=== PATIENT | female | born 1955 | race Hispanic/Latino ===

== ENCOUNTER 2021-05-06 14:01 | Emergency (ER) | payer BC ==
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
[2021-05-06 16:37] VITALS: BP 115/66; TEMP 98.3; O2SAT 99
== END 2021-05-06 15:44 | disposition home or self-care (01) ==
LOC: ER 14:01
DX: S16.1XXA Strain of muscle, fascia and tendon at neck level, initial encounter (principal); S20.219A Contusion of unspecified front wall of thorax, initial encounter; V49.40XA Driver injured in collision with unspecified motor vehicles in traffic accident, initial encounter
CPT/HCPCS: 70450; 71045; 72125; 93005; 99283

== ENCOUNTER 2021-10-05 17:25 | Emergency (ER) | payer BC, SELFPAY ==
[2021-10-05] MEDS ORDERED: ONDANSETRON 4 MG (ODT) TAB ONE (18:28)
[2021-10-05] MEDS ORDERED: IBUPROFEN 200 MG TAB PO ONE (18:28)
[2021-10-05] MEDS ORDERED: IBUPROFEN 400 MG TAB ONE (18:28)
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
--- NOTE | 2021-10-05 19:03 | ER ---
Nurse's Notes [facility] Name: Brandie Miranda Age: 66 yrs Sex: Female : 1955 Arrival Date: 10/05/2021 Time: 17:26 Bed 12 Private MD: Aram Pena V Diagnosis: Acute pain due to trauma;Contusion of left hand;Sprain of joints and ligaments of other parts of neck, initial encounter Presentation: 10/05 17:49 Chief complaint: Patient states: Tripped at 1635. Hit glass door very hard. No LOC, no ll1 N/V since. Gait steady. Hit head, L hand, and L knee. Coronavirus screen: Vaccine status: Patient reports being unvaccinated. Client denies travel out of the [place] in the last 14 days. At this time, the client does not indicate any symptoms associated with coronavirus-19. Ebola Screen: Patient denies travel to an Ebola-affected area in the 21 days before illness onset. Initial Sepsis Screen: Does the patient meet any 2 criteria? No. Patient's initial sepsis screen is negative. Does the patient have a suspected source of infection? No. Patient's initial sepsis screen is negative. Risk Assessment: Do you want to hurt yourself or someone else? Patient reports no desire to harm self or others. Onset of symptoms was October 05, 2021. 17:49 Method Of Arrival: Ambulatory ll1 17:49 Acuity: NEREYDA 4 ll1 Historical: - Allergies: 17:49 No Known Allergies; ll1 - PMHx: 17:49 None; ll1 - PSHx: 17:49 Cholecystectomy; ll1 - Immunization history:: Client reports receiving the 2nd dose of the Covid vaccine. - Social history:: Smoking status: Patient denies any tobacco usage or history of. Vital Signs: 17:49 BP 144 / 100; Pulse 74; Resp 16; Temp 98.0; Pulse Ox 99% ; Weight 74.84 kg; Height 5 ll1 ft. 3 in. (160.02 cm); Pain 4/10; 17:49 Body Mass Index 29.23 (74.84 kg, 160.02 cm) ll1 ED Course: 17:26 Patient arrived in ED. am2 17:26 Aram Pena MD is Private Physician. am2 17:51 Triage completed. ll1 17:51 Arm band placed on Patient placed in an exam room, on a stretcher. ll1 17:55 Guzman Orozco PA is PHCP. jr8 17:55 Dylan Chen MD is Attending Physician. jr8 18:51 Head C Spine Mpr Wo Con In Process Unspecified. EDMS 19:01 Aram Pena MD is Referral Physician. jr8 Administered Medications: No medications were administered Outcome: 19:03 Discharge ordered by . jr8 19:08 Patient left the ED. mb7 Signatures: Dispatcher [employer] EDME Guzman Orozco PA PA jr8 Chelsea Raines am2 Markus Elizabeth RN RN ll1 Virgie Forrest mb7 Corrections: (The following items were deleted from the chart) 17:49 17:49 PSHx: None; ll1 ll1
--- NOTE | 2021-10-05 19:04 | EDPHYS ---
Physician Documentation [facility] Name: Brandie Miranda Age: 66 yrs Sex: Female : 1955 Arrival Date: 10/05/2021 Time: 17:26 Bed 12 Private MD: Aram Pena V ED Physician Dylan Chen HPI: 10/05 18:14 This 66 yrs old Female presents to ER via Ambulatory with complaints of Fall jr8 Injury, Head Injury-Adult, Hand Pain, Knee Pain. 18:14 Details of fall: The patient fell from an upright position, while standing. Onset: The jr8 symptoms/episode began/occurred acutely, today. Associated injuries: The patient sustained injury to the head, left hand, left leg. Severity of symptoms: At their worst the symptoms were mild, in the emergency department the symptoms have improved. The patient has not experienced similar symptoms in the past. The patient has not recently seen a physician. Patient stated that she tripped while at work falling into glass door. Hit head but denies LOC. Mild headache currently. Not on antiplatelet or anticoagulant therapy. Mild pain to left hand and knee as well . Historical: - Allergies: 17:49 No Known Allergies; ll1 - PMHx: 17:49 None; ll1 - PSHx: 17:49 Cholecystectomy; ll1 - Immunization history:: Client reports receiving the 2nd dose of the Covid vaccine. - Social history:: Smoking status: Patient denies any tobacco usage or history of. ROS: 18:14 Eyes: Negative for injury, pain, redness, and discharge, ENT: Negative for injury, jr8 pain, and discharge, Neck: Negative for injury, pain, and swelling, Cardiovascular: Negative for chest pain, palpitations, and edema, Respiratory: Negative for shortness of breath, cough, wheezing, and pleuritic chest pain, Abdomen/GI: Negative for abdominal pain, nausea, vomiting, diarrhea, and constipation, Back: Negative for injury and pain, Skin: Negative for injury, rash, and discoloration. 18:14 MS/extremity: Positive for pain, tenderness, of the left hand and left leg. 18:14 Neuro: Positive for headache, Negative for altered mental status, dizziness, loss of consciousness, seizure activity. Exam: 18:14 Constitutional: This is a well developed, well nourished patient who is awake, alert, jr8 and in no acute distress. Head/Face: Normocephalic, atraumatic. Eyes: Pupils equal round and reactive to light, extra-ocular motions intact. Lids and lashes normal. Conjunctiva and sclera are non-icteric and not injected. Cornea within normal limits. Periorbital areas with no swelling, redness, or edema. ENT: Nares patent. No nasal discharge, no septal abnormalities noted. Tympanic membranes are normal and external auditory canals are clear. Oropharynx with no redness, swelling, or masses, exudates, or evidence of obstruction, uvula midline. Mucous membranes moist. Neck: Trachea midline, no thyromegaly or masses palpated, and no cervical lymphadenopathy. Supple, full range of motion without nuchal rigidity, or vertebral point tenderness. No Meningismus. Chest/axilla: Normal chest wall appearance and motion. Nontender with no deformity. No lesions are appreciated. Cardiovascular: Regular rate and rhythm with a normal S1 and S2. No gallops, murmurs, or rubs. Normal PMI, no JVD. No pulse deficits. Respiratory: Lungs have equal breath sounds bilaterally, clear to auscultation and percussion. No rales, rhonchi or wheezes noted. No increased work of breathing, no retractions or nasal flaring. Abdomen/GI: Soft, non-tender, with normal bowel sounds. No distension or tympany. No guarding or rebound. No evidence of tenderness throughout. Back: No spinal tenderness. No costovertebral tenderness. Full range of motion. Skin: Warm, dry with normal turgor. Normal color with no rashes, no lesions, and no evidence of cellulitis. Neuro: Awake and alert, GCS 15, oriented to person, place, time, and situation. Cranial nerves II-XII grossly intact. Motor strength 5/5 in all extremities. Sensory grossly intact. Cerebellar exam normal. Normal gait. 18:14 Musculoskeletal/extremity: Extremities: grossly normal except: noted in the left hand: Patient has small bruise to the thenar eminence of the left hand and to the metacarpophalangeal region of the fifth digit. No tenderness to palpation or with range of motion., ROM: intact in all extremities, Circulation is intact in all extremities. Sensation intact. Vital Signs: 17:49 BP 144 / 100; Pulse 74; Resp 16; Temp 98.0; Pulse Ox 99% ; Weight 74.84 kg; Height 5 ll1 ft. 3 in. (160.02 cm); Pain 4/10; 17:49 Body Mass Index 29.23 (74.84 kg, 160.02 cm) ll1 MDM: 17:55 Patient medically screened. jr8 18:14 Data reviewed: vital signs, nurses notes, radiologic studies, CT scan. Data jr8 interpreted: Pulse oximetry: on room air is 99 %. Interpretation: normal. Counseling: I had a detailed discussion with the patient and/or guardian regarding: the historical points, exam findings, and any diagnostic results supporting the discharge/admit diagnosis, radiology results, the need for outpatient follow up, a family practitioner, to return to the emergency department if symptoms worsen or persist or if there are any questions or concerns that arise at home. 10/05 18:48 Order name: Head C Spine Mpr Wo Con; Complete Time: 19:01 EDMS Administered Medications: No medications were administered Disposition: 10/06 07:27 Co-signature as Attending Physician, Dylan Chen MD I agree with the assessment and rn plan of care. Attestation: The patient's history, exam findings, diagnostics, and a summary of any interventions or procedures was reviewed in detail with Guzman AUGUSTIN. Disposition Summary: 10/05/21 19:03 Discharge Ordered Location: Home jr8 Problem: new jr8 Symptoms: have improved jr8 Condition: Stable jr8 Diagnosis - Acute pain due to trauma jr8 - Contusion of left hand jr8 - Sprain of joints and ligaments of other parts of neck, initial encounter jr8 Followup: jr8 - With: Aram Pena MD - When: 1 week - Reason: Recheck today's complaints, Continuance of care, Re-evaluation by your physician Discharge Instructions: - Discharge Summary Sheet jr8 - Head Injury, Adult jr8 - Muscle Pain, Adult jr8 - Cervical Sprain jr8 Forms: - Medication Reconciliation Form jr8 - Thank You Letter jr8 - Antibiotic Education jr8 - Prescription Opioid Use jr8 Signatures: Dispatcher [employer] EDMS Dylan Chen MD MD rn Roszak, Josh, PA PA jr8 Markus Elizabeth RN RN ll1 Corrections: (The following items were deleted from the chart) 10/05 17:49 17:49 PSHx: None; ll1 ll1 18:48 18:05 Head Brain Wo Cont+CT.RAD.BRZ ordered. EDMS EDMS 18:49 18:39 C Spine Wo Con+CT.RAD.BRZ ordered. EDMS EDMS
[2021-10-05 20:13] VITALS: BP 144/100; TEMP 98; O2SAT 99
== END 2021-10-05 19:08 | disposition home or self-care (01) ==
LOC: ER 17:25
DX: S13.8XXA Sprain of joints and ligaments of other parts of neck, initial encounter (principal); S60.222A Contusion of left hand, initial encounter; G89.11 Acute pain due to trauma; W01.198A Fall on same level from slipping, tripping and stumbling with subsequent striking against other object, initial encounter; Y92.89 Other specified places as the place of occurrence of the external cause; Y99.8 Other external cause status
CPT/HCPCS: 70450; 72125; 99282

== ENCOUNTER 2021-11-06 17:07 | Emergency (ER) | payer BC ==
[2021-11-06] MEDS ORDERED: TRAMADOL HCL 50 MG TAB ONE (20:59)
--- NOTE | 2021-11-06 22:10 | RAD REPORT ---
EXAM DESCRIPTION: RAD - Pelvis - 11/06/2021 9:44 pm CLINICAL HISTORY: PAIN COMPARISON: No comparisons FINDINGS: [id number] osteoarthritis is present involving both hips. No acute fracture or dislo cation seen.
--- NOTE | 2021-11-06 22:11 | RAD REPORT ---
EXAM DESCRIPTION: RAD - Hip Right 2 View - 11/06/2021 9:44 pm CLINICAL HISTORY: PAIN COMPARISON: No comparisons FINDINGS: Moderate osteoarthritis of the right hip is present. No acute fracture or dislocation seen .
--- NOTE | 2021-11-06 22:11 | RAD REPORT ---
EXAM DESCRIPTION: RAD - Knee Left 3 View - 11/06/2021 9:44 pm CLINICAL HISTORY: PAIN COMPARISON: No comparisons FINDINGS: Moderate osteoarthritis of the medial joint compartment is seen with joint space narrowing , osteophytosis and eburnation. No acute fracture or dislocation. No joint effusion.
--- NOTE | 2021-11-06 22:12 | RAD REPORT ---
EXAM DESCRIPTION: RAD - Knee Right 3 View - 11/06/2021 9:44 pm CLINICAL HISTORY: PAIN COMPARISON: No comparisons FINDINGS: Moderate to severe osteoarthritis of the medial joint compartment is seen. No fracture, di slocation or joint effusion.
--- NOTE | 2021-11-06 22:20 | ER ---
Nurse's Notes [facility] Name: Brandie Miranda Age: 66 yrs Sex: Female : 1955 Arrival Date: 11/06/2021 Time: 17:10 Bed 9 Private MD: Diagnosis: Fall (on) (from) other stairs and steps, initial encounter;Pain in right hip;Pain in left knee;Pain in right knee Presentation: 11/06 17:24 Chief complaint: Patient states: Tripped herself going down her stairs Tuesday. Missed ll1 the last 3 steps. R hip pain since. Coronavirus screen: Vaccine status: Patient reports receiving the 2nd dose of the covid vaccine. Client denies travel out of the [place] in the last 14 days. At this time, the client does not indicate any symptoms associated with coronavirus-19. Ebola Screen: Patient denies travel to an Ebola-affected area in the 21 days before illness onset. Initial Sepsis Screen: Does the patient meet any 2 criteria? No. Patient's initial sepsis screen is negative. Does the patient have a suspected source of infection? No. Patient's initial sepsis screen is negative. Risk Assessment: Do you want to hurt yourself or someone else? Patient reports no desire to harm self or others. Onset of symptoms was October 2021. 17:24 Method Of Arrival: Wheelchair ll1 17:24 Acuity: NEREYDA 4 ll1 Triage Assessment: 17:27 General: Appears in no apparent distress. Behavior is calm, cooperative, appropriate ll1 for age. Pain: Complains of pain in R hip. Musculoskeletal: Reports pain in R hip. Injury Description: Bruise. Historical: - Allergies: 17:25 No Known Allergies; ll1 - PMHx: 17:25 Diabetes mellitus; Hypercholesterolemia; Hypertensive disorder; ll1 - PSHx: 17:25 Cholecystectomy; knee SX; ll1 - Immunization history:: Client reports receiving the 2nd dose of the Covid vaccine. - Social history:: Smoking status: Patient denies any tobacco usage or history of. Screenin:15 Abuse screen: Denies threats or abuse. Nutritional screening: No deficits noted. bb Tuberculosis screening: No symptoms or risk factors identified. Fall Risk None identified. Assessment: 20:15 General: Appears in no apparent distress. uncomfortable, Behavior is calm, cooperative. bb Pain: Complains of pain in back. Neuro: Level of Consciousness is awake, alert, obeys commands, Oriented to person, place, time, situation. Cardiovascular: Capillary refill < 3 seconds Patient's skin is warm and dry. Respiratory: Respiratory effort is even, unlabored, Respiratory pattern is regular. GI: No signs and/or symptoms were reported involving the gastrointestinal system. Derm: Skin is pink, warm \T\ dry. Musculoskeletal: Circulation, motion, and sensation intact. 22:20 Reassessment: Patient is alert, oriented x 3, equal unlabored respirations, skin bb warm/dry/pink. pt verbalized understanding of and agrees to plan of care discharge instructions given. 22:32 Reassessment: pt assisted to exit via wheelchair accompanied by spouse. bb Vital Signs: 17:24 BP 147 / 82; Pulse 85; Resp 16; Temp 98.8; Pulse Ox 97% ; Weight 73.03 kg; Height 5 ft. ll1 3 in. (160.02 cm); Pain 8/10; 21:59 BP 158 / 78; Pulse 83; Resp 18; Temp 98.2; Pulse Ox 98% ; cs9 17:24 Body Mass Index 28.52 (73.03 kg, 160.02 cm) ll1 ED Course: 17:10 Patient arrived in ED. ja2 17:25 Triage completed. ll1 17:26 Arm band placed on. ll1 20:15 Patient has correct armband on for positive identification. Bed in low position. Call bb light in reach. Side rails up X 1. Adult w/ patient. 20:20 Shai Smith PA is PHCP. cp 20:20 Koko Ríos MD is Attending Physician. cp 20:35 Tatyana Alvarez, TOMER is Primary Nurse. bb 21:44 XRAY Pelvis In Process Unspecified. EDMS 21:44 XRAY Hip RIGHT 2 view In Process Unspecified. EDMS 21:44 XRAY Knee LEFT 3 view In Process Unspecified. EDMS 21:44 XRAY Knee RIGHT 3 view In Process Unspecified. EDMS 22:33 No provider procedures requiring assistance completed. Patient did not have IV access bb during this emergency room visit. Administered Medications: 21:00 Drug: UltRAM (traMADol) 50 mg {Note: rass 0.} Route: PO; bb 22:00 Follow up: Response: No adverse reaction; Pain is decreased; RASS: Alert and Calm (0) bb Outcome: 22:19 Discharge ordered by . hitesh 22:33 Discharged to home via wheelchair, with family. bb 22:33 Condition: stable 22:33 Discharge instructions given to patient, Instructed on discharge instructions, follow up and referral plans. no driving heavy equipment, medication usage, Demonstrated understanding of instructions, follow-up care, medications, Prescriptions given X 4. 22:33 Patient left the ED. bb Signatures: Dispatcher [employer] EDTatyana Gibbs RN RN bb Shai Smith, Markus Arroyo cp, RN RN llClarissa Miller Christine cs9
--- NOTE | 2021-11-06 22:20 | EDPHYS ---
Physician Documentation [facility] Name: Brandie Miranda Age: 66 yrs Sex: Female : 1955 Arrival Date: 11/06/2021 Time: 17:10 Bed 9 Private MD: ED Physician Koko Ríos HPI: 11/06 20:50 This 66 yrs old Female presents to ER via Wheelchair with complaints of Fall cp Injury, Back Pain. 20:50 Details of fall: The patient fell from a height, down approximately 3 stairs. Onset: cp The symptoms/episode began/occurred 3 day(s) ago. Associated injuries: The patient sustained right buttocks and right hip, patient c/o increased knee pain since fall. Patient denies hitting head, denies chest pain, denies LOC. Historical: - Allergies: 17:25 No Known Allergies; ll1 - PMHx: 17:25 Diabetes mellitus; Hypercholesterolemia; Hypertensive disorder; ll1 - PSHx: 17:25 Cholecystectomy; knee SX; ll1 - Immunization history:: Client reports receiving the 2nd dose of the Covid vaccine. - Social history:: Smoking status: Patient denies any tobacco usage or history of. ROS: 20:55 Constitutional: Negative for body aches, chills, fever, poor PO intake. cp 20:55 Eyes: Negative for injury, pain, redness, and discharge. cp 20:55 Neck: Negative for pain with movement, pain at rest, stiffness. 20:55 Cardiovascular: Negative for chest pain, edema, palpitations. 20:55 Respiratory: Negative for cough, shortness of breath, wheezing. 20:55 Abdomen/GI: Negative for abdominal pain, nausea, vomiting, and diarrhea. 20:55 Back: Negative for decreased range of motion. 20:55 MS/extremity: Positive for pain, of the right upper buttock and right hip, Negative for paresthesias. 20:55 Neuro: Negative for altered mental status, headache, numbness, syncope, weakness. 20:55 All other systems are negative. Exam: 20:57 Constitutional: The patient appears in no acute distress, alert, awake, non-toxic, well cp developed, well nourished, pleasant 20:57 Head/Face: Normocephalic, atraumatic. cp 20:57 Eyes: Periorbital structures: appear normal, Conjunctiva: normal, no exudate, no injection, Sclera: no appreciated abnormality, Lids and lashes: appear normal, bilaterally. 20:57 ENT: External ear(s): are unremarkable, Nose: is normal, Mouth: Lips: moist, Oral mucosa: moist, Posterior pharynx: Airway: no evidence of obstruction, patent. 20:57 Neck: C-spine: vertebral tenderness, is not appreciated, crepitus, is not appreciated, ROM/movement: is normal, is supple, without pain, no range of motions limitations. 20:57 Chest/axilla: Inspection: normal. 20:57 Cardiovascular: Rate: normal, Rhythm: regular. 20:57 Respiratory: the patient does not display signs of respiratory distress, Respirations: normal, no use of accessory muscles, no retractions, labored breathing, is not present, Breath sounds: are clear throughout, no decreased breath sounds, no stridor, no wheezing. 20:57 Abdomen/GI: Inspection: abdomen appears normal, Palpation: abdomen is soft and non-tender, in all quadrants. 20:57 Back: pain, that is mild, of the right low back, ROM is painful, with all movement, vertebral tenderness, is not appreciated, Straight leg raises: of both lower extremities does not illicit pain. 20:57 Musculoskeletal/extremity: Extremities: grossly normal except: noted in the right hip: pain, tenderness, There is no evidence of decreased ROM, deformity, Joints: the left knee and right knee displays painful range of motion, tenderness. 20:57 Neuro: Orientation: to person, place \T\ time. Mentation: is normal, Motor: moves all fours, strength is normal, Sensation: is normal. Vital Signs: 17:24 BP 147 / 82; Pulse 85; Resp 16; Temp 98.8; Pulse Ox 97% ; Weight 73.03 kg; Height 5 ft. ll1 3 in. (160.02 cm); Pain 8/10; 21:59 BP 158 / 78; Pulse 83; Resp 18; Temp 98.2; Pulse Ox 98% ; cs9 17:24 Body Mass Index 28.52 (73.03 kg, 160.02 cm) ll1 MDM: 20:30 Patient medically screened. cp 21:00 Differential diagnosis: contusion, fracture, multiple trauma. cp 22:19 Data reviewed: vital signs, nurses notes, radiologic studies, plain films. cp 22:19 Counseling: I had a detailed discussion with the patient and/or guardian regarding: the cp historical points, exam findings, and any diagnostic results supporting the discharge/admit diagnosis, radiology results, to return to the emergency department if symptoms worsen or persist or if there are any questions or concerns that arise at home. Response to treatment: Pain improved. Radiology studies negative for acute fracture. Will discharge to home for continued monitoring. 11/06 20:41 Order name: XRAY Pelvis; Complete Time: 22:16 cp 11/06 20:41 Order name: XRAY Hip RIGHT 2 view; Complete Time: 22:16 cp 11/06 20:41 Order name: XRAY Knee LEFT 3 view; Complete Time: 22:16 cp 11/06 20:41 Order name: XRAY Knee RIGHT 3 view; Complete Time: 22:16 cp Administered Medications: 21:00 Drug: UltRAM (traMADol) 50 mg {Note: rass 0.} Route: PO; bb 22:00 Follow up: Response: No adverse reaction; Pain is decreased; RASS: Alert and Calm (0) bb Disposition Summary: 11/06/21 22:19 Discharge Ordered Location: Home cp Problem: new cp Symptoms: have improved cp Condition: Stable cp Diagnosis - Fall (on) (from) other stairs and steps, initial encounter cp - Pain in right hip cp - Pain in left knee cp - Pain in right knee cp Followup: cp - With: Private Physician - When: 2 - 3 days - Reason: Recheck today's complaints Discharge Instructions: - Discharge Summary Sheet cp - Acute Knee Pain, Adult cp - Hip Pain cp Forms: - Medication Reconciliation Form cp - Thank You Letter cp - Antibiotic Education cp - Prescription Opioid Use cp Prescriptions: - Lidoderm 5 % Topical adhesive patch,medicated - apply 1 patch by TOPICAL route once daily; 1 box; Refills: 0, Product Selection cp Permitted - Ibuprofen 800 mg Oral Tablet - take 1 tablet by ORAL route every 8 hours As needed take with food; 30 tablet; cp Refills: 0, Product Selection Permitted - Cyclobenzaprine 10 mg Oral Tablet - take 1 tablet by ORAL route every 8 hours As needed; 20 tablet; Refills: 0, cp Product Selection Permitted - Tramadol 50 mg Oral Tablet - take 1 tablet by ORAL route every 8 hours as needed; 12 tablet; Refills: 0, cp Product Selection Permitted Addendum: 11/12/2021 07:28 Co-signature as Attending Physician, Koko Ríos MD I agree with the assessment and k dr plan of care. Signatures: Dispatcher [employer] Koko Gomez MD MD kdr Ballard, Brenda, RN RN bb Shai Smith PA PA cp Lewis, Lynsay RN RN ll1
[2021-11-06 23:16] VITALS: BP 158/78; TEMP 98.2; O2SAT 98
== END 2021-11-06 22:33 | disposition home or self-care (01) ==
LOC: ER 17:07
DX: M25.551 Pain in right hip (principal); M25.562 Pain in left knee; M25.561 Pain in right knee; W10.8XXA Fall (on) (from) other stairs and steps, initial encounter; I10 Essential (primary) hypertension; E11.9 Type 2 diabetes mellitus without complications
CPT/HCPCS: 72170; 99283

== ENCOUNTER 2022-01-27 15:19 | Emergency (ER) | payer BC ==
[2022-01-27] MEDS ORDERED: HYDROCODONE/APAP 7.5/325 MG TAB ONE (15:58)
--- NOTE | 2022-01-27 16:55 | RAD REPORT ---
EXAM DESCRIPTION: CT - Stone Protocol - 01/27/2022 4:41 pm CLINICAL HISTORY: Abdominal pain. COMPARISON: None. TECHNIQUE: Computed axial tomography of the abdomen pelvis was obtained without oral or IV contrast. Lack of IV and oral contrast limits evaluation of solid organs, bowel, and vessels. Coronal reformat vicki images were obtained and reviewed. All CT scans are performed using dose optimization technique as appropriate and may include automated exposure control or mA/KV adjustment according to patient size. FINDINGS: A renal calculus is not seen. An ureteral calculus is not noted. A bladder calculus is not present. A small right renal cyst suspected The liver, spleen, pancreas and adrenals appear grossly normal There is no evidence of diverticulitis. An acute fracture is not visualized Cholecystectomy. Small umbilical hernia IMPRESSION: Negative for a genitourinary calculus
--- NOTE | 2022-01-27 17:27 | ER ---
Nurse's Notes [facility] Name: Brandie Miranda Age: 66 yrs Sex: Female : 1955 Arrival Date: 01/27/2022 Time: 15:22 Bed 12 Private MD: Aram Pena V Diagnosis: Pain in right hip Presentation: 01/27 15:41 Chief complaint: Patient states: Fell last month. Has been having back pain/leg pains ll1 since. Reports R upper leg pain with certain movements throughout the night. Pain radiates into R buttocks area now. R leg feels weak and gives out randomly. Coronavirus screen: Vaccine status: Patient reports receiving the 2nd dose of the covid vaccine. Client denies travel out of the [place] in the last 14 days. At this time, the client does not indicate any symptoms associated with coronavirus-19. Ebola Screen: Patient denies travel to an Ebola-affected area in the 21 days before illness onset. Initial Sepsis Screen: Does the patient meet any 2 criteria? No. Patient's initial sepsis screen is negative. Does the patient have a suspected source of infection? Yes: Bone or joint infection. Risk Assessment: Do you want to hurt yourself or someone else? Patient reports no desire to harm self or others. Onset of symptoms was December 27, 2021. 15:41 Method Of Arrival: Wheelchair ll1 15:41 Acuity: NEREYDA 3 ll1 Triage Assessment: 15:45 General: Appears uncomfortable, Behavior is calm, cooperative, appropriate for age. ll1 Pain: Complains of pain in R buttocks Quality of pain is described as aching. Musculoskeletal: Reports pain in R upper leg/R buttocks. Historical: - Allergies: 15:44 No Known Allergies; ll1 - PMHx: 15:44 diabetes mellitus; Hypercholesterolemia; Hypertensive disorder; ll1 - PSHx: 15:44 Cholecystectomy; knee sx; ll1 - Immunization history:: Client reports receiving the 2nd dose of the Covid vaccine. - Social history:: Smoking status: Patient denies any tobacco usage or history of. Screenin:57 Abuse screen: Denies threats or abuse. Denies injuries from another. Nutritional ld1 screening: No deficits noted. Tuberculosis screening: No symptoms or risk factors identified. Fall Risk None identified. Assessment: 16:57 General: Appears in no apparent distress. comfortable, Behavior is calm, cooperative, ld1 appropriate for age. Pain: Complains of pain in right leg Pain does not radiate. Pain currently is 7 out of 10 on a pain scale. Neuro: Level of Consciousness is awake, alert, obeys commands, Oriented to person, place, time, situation. Cardiovascular: Capillary refill < 3 seconds Patient's skin is warm and dry. Respiratory: Airway is patent Respiratory effort is even, unlabored. GI: Abdomen is flat, non-distended. : No signs and/or symptoms were reported regarding the genitourinary system. EENT: No signs and/or symptoms were reported regarding the EENT system. Derm: No signs and/or symptoms reported regarding the dermatologic system. Musculoskeletal: No signs and/or symptoms reported regarding the musculoskeletal system. 17:33 Reassessment: Patient appears in no apparent distress at this time. Patient and/or ld1 family updated on plan of care and expected duration. Pain level reassessed. Patient is alert, oriented x 3, equal unlabored respirations, skin warm/dry/pink. Vital Signs: 15:41 BP 134 / 83; Pulse 82; Resp 16; Temp 97.8; Pulse Ox 97% on R/A; Weight 68.04 kg; Height ll1 5 ft. 3 in. (160.02 cm); Pain 10/10; 16:57 BP 129 / 80; Pulse 84; Resp 16; Pulse Ox 98% on R/A; ld1 17:33 BP 130 / 86; Pulse 82; Resp 18; Pulse Ox 99% on R/A; ld1 15:41 Body Mass Index 26.57 (68.04 kg, 160.02 cm) ll1 ED Course: 15:22 Patient arrived in ED. mr 15:22 Aram Pena MD is Private Physician. mr 15:39 oRssy Moreno FNP-C [facility]. kb 15:39 Buck Ontiveros DO is Attending Physician. kb 15:44 Triage completed. ll1 15:45 Arm band placed on. ll1 16:42 CT Stone Protocol In Process Unspecified. EDMS 16:50 Christiana Jones, TOMER is Primary Nurse. ld1 16:57 Patient has correct armband on for positive identification. Placed in gown. Bed in low ld1 position. Call light in reach. Side rails up X2. lunchroom monitor on. Pulse ox on. NIBP on. Door closed. Noise minimized. Warm blanket given. 16:57 No provider procedures requiring assistance completed. ld1 17:33 Patient did not have IV access during this emergency room visit. ld1 Administered Medications: 15:55 Drug: [place] (HYDROcodone-acetaminophen) (7.5 mg-325 mg) 1 tabs Route: PO; ll1 Medication: 16:57 VIS not applicable for this client. ld1 Outcome: 17:27 Discharge ordered by . aditya 17:33 Discharged to home ambulatory. ld1 17:33 Condition: stable 17:33 Discharge instructions given to patient, Instructed on discharge instructions, follow up and referral plans. Demonstrated understanding of instructions, follow-up care. 17:33 Patient left the ED. ld1 Signatures: Dispatcher [employer] EDMS Rossy Moreno, PAOLA SAW SHARPENER-Angie CallahanaVirgie mr Markus Elizabeth RN RN ll1 Christiana Jones, TOMER RN ld1 Corrections: (The following items were deleted from the chart) 15:46 15:41 BP 134 / 83; Pulse 82bpm; Resp 16bpm; Pulse Ox 97% RA; Temp 97.8F; Pain 10/10; ll1ll1
--- NOTE | 2022-01-27 17:27 | EDPHYS ---
Physician Documentation [facility] Name: Brandie Miranda Age: 66 yrs Sex: Female : 1955 Arrival Date: 01/27/2022 Time: 15:22 Bed 12 Private MD: Aram Pena V ED Physician Buck Ontiveros HPI: 01/27 17:24 This 66 yrs old Female presents to ER via Wheelchair with complaints of Leg kb Pain. 17:24 The patient presents with pain. The complaints affect the left flank, right gluteus kb nancy, right hip and right quadriceps. Context: The problem was sustained at work, resulted from the patient falling, the patient can fully bear weight, the patient is able to ambulate, Problem is a result from a previous injury: Yes. Onset: The symptoms/episode began/occurred today. Modifying factors: The symptoms are alleviated by nothing. the symptoms are aggravated by nothing. Associated signs and symptoms: The patient has no apparent associated signs or symptoms. Treatment prior to arrival includes: juan wrap. Severity of symptoms: At their worst the symptoms were moderate, in the emergency department the symptoms are unchanged. The patient has not experienced similar symptoms in the past. The patient has not recently seen a physician. Pt states she has pain to right hip/buttock area as well as right thigh. States she also has pain to left flank that radiates to left abd. States the pain has all been from falls that she has been having over the past month. sTates her leg gives out or she trips over things causing her to fall, most recent fall was today. came in for the pain to right buttock being the worst. States she has had an x-ray and it showed arthritis. Has appt with Dr Pena at 1030 tomorrow morning. Historical: - Allergies: 15:44 No Known Allergies; ll1 - PMHx: 15:44 diabetes mellitus; Hypercholesterolemia; Hypertensive disorder; ll1 - PSHx: 15:44 Cholecystectomy; knee sx; ll1 - Immunization history:: Client reports receiving the 2nd dose of the Covid vaccine. - Social history:: Smoking status: Patient denies any tobacco usage or history of. ROS: 17:10 Constitutional: Negative for fever, chills, and weight loss. kb 17:10 Back: Positive for flank pain, on the left, radiated pain, of the right flank. 17:10 MS/extremity: Positive for pain, of the right iliac crest and right hip. 17:10 All other systems are negative. Exam: 17:10 Constitutional: This is a well developed, well nourished patient who is awake, alert, kb and in no acute distress. Head/Face: Normocephalic, atraumatic. ENT: Moist Mucous membranes Cardiovascular: Regular rate and rhythm with a normal S1 and S2. No gallops, murmurs, or rubs. No pulse deficits. Respiratory: Respirations even and unlabored. No increased work of breathing. Talking in full sentences Abdomen/GI: Soft, non-tender. No distention Back: No spinal tenderness. No costovertebral tenderness. Full range of motion. Skin: Warm, dry with normal turgor. Normal color. MS/ Extremity: Pulses equal, no cyanosis. Neurovascular intact. Full, normal range of motion. Neuro: Awake and alert, GCS 15, oriented to person, place, time, and situation. Moves all extremities. Normal gait. Psych: Awake, alert, with orientation to person, place and time. Behavior, mood, and affect are within normal limits. Vital Signs: 15:41 BP 134 / 83; Pulse 82; Resp 16; Temp 97.8; Pulse Ox 97% on R/A; Weight 68.04 kg; Height ll1 5 ft. 3 in. (160.02 cm); Pain 10/10; 16:57 BP 129 / 80; Pulse 84; Resp 16; Pulse Ox 98% on R/A; ld1 17:33 BP 130 / 86; Pulse 82; Resp 18; Pulse Ox 99% on R/A; ld1 15:41 Body Mass Index 26.57 (68.04 kg, 160.02 cm) ll1 MDM: 15:39 Patient medically screened. kb 17:10 Data reviewed: vital signs, nurses notes. Data interpreted: Pulse oximetry: on room air kb is 98 %. Interpretation: normal. Counseling: I had a detailed discussion with the patient and/or guardian regarding: the historical points, exam findings, and any diagnostic results supporting the discharge/admit diagnosis, radiology results, the need for outpatient follow up, a family practitioner, to return to the emergency department if symptoms worsen or persist or if there are any questions or concerns that arise at home. 01/27 15:52 Order name: CT Stone Protocol; Complete Time: 16:59 kb Administered Medications: 15:55 Drug: [place] (HYDROcodone-acetaminophen) (7.5 mg-325 mg) 1 tabs Route: PO; ll1 Disposition: 22:28 Co-signature as Attending Physician, Buck Ontiveros DO I was immediately available on-site ms3 in the Emergency Department for consultation in the care of the patient. . Disposition Summary: 01/27/22 17:27 Discharge Ordered Location: Home kb Condition: Stable kb Diagnosis - Pain in right hip kb Followup: kb - With: Emergency Department - When: As needed - Reason: Worsening of condition Followup: kb - With: Private Physician - When: 2 - 3 days - Reason: Recheck today's complaints, Continuance of care, Re-evaluation by your physician Discharge Instructions: - Discharge Summary Sheet kb - Musculoskeletal Pain kb Forms: - Medication Reconciliation Form kb - Thank You Letter kb - Antibiotic Education kb - Prescription Opioid Use kb Prescriptions: - Ibuprofen 800 mg Oral Tablet - take 1 tablet by ORAL route every 8 hours As needed take with food; 30 tablet; kb Refills: 0, Product Selection Permitted - Cyclobenzaprine 10 mg Oral Tablet - take 1 tablet by ORAL route every 8 hours As needed; 21 tablet; Refills: 0, kb Product Selection Permitted Signatures: Dispatcher [employer] Rossy Adams, LEGAL ENTITY CONTROLLER-C JESSICA-Markus Sherman RN RN ll1 Buck Ontiveros DO DO ms3 Corrections: (The following items were deleted from the chart) 16:41 15:53 Pelvis Wo [id number] ordered. EDMS EDMS
[2022-01-27 17:39] VITALS: TEMP 97.8
[2022-01-27 17:43] VITALS: BP 130/86; O2SAT 99
== END 2022-01-27 17:33 | disposition home or self-care (01) ==
LOC: ER 15:19
DX: M25.551 Pain in right hip (principal); E11.9 Type 2 diabetes mellitus without complications; I10 Essential (primary) hypertension
CPT/HCPCS: 74176; 76377; 99284

== ENCOUNTER 2023-04-19 17:05 | Emergency (ER) | payer BC, SELFPAY ==
[2023-04-19] MEDS ORDERED: NA CHLORIDE 0.9% 1,000 ML ONE (17:32)
[2023-04-19 17:48] LABS: Absolute Lymphocytes (CBC) 1.6 K/uL (0.7-4.9); Hematocrit 35.8 % (36.0-45.0); Lymphocytes % 29.1 % (15.3-44.8); MCV 83.5 fL (80-100); MPV 7.4 fL (7.6-11.3); Platelets 233 thou/uL (152-406); RBC Red Blood Cell Count 4.29 M/uL (3.86-4.86)
[2023-04-19 18:08] LABS: Potassium 3.6 mEq/L (3.5-5.1)
--- NOTE | 2023-04-19 18:11 | RAD REPORT ---
EXAM DESCRIPTION: CT - [id number] - 04/19/2023 6:02 pm CLINICAL HISTORY: Trauma, head and neck injury. Pain;Trauma COMPARISON: Head C Spine Mpr Wo Con dated 10/05/2021; Head C Spine Mpr Wo Con dated 05/06/2021 TECHNIQUE: Axial 5 mm thick images of the head were obtained. Axial 2 mm thick images of the cervical spine were obtained with sagittal and coronal reconstruction images generated and reviewed. All CT scans are performed using dose optimization technique as appropriate and may include automated exposure control or mA/KV adjustment according to patient size. FINDINGS: CT HEAD WITHOUT CONTRAST: No acute hemorrhage, hydrocephalus or extra-axial collection is identified.No areas of brain edema or midline shift. The paranasal sinuses and mastoids are clear.The calvarium is intact. CT CERVICAL SPINE WITHOUT CONTRAST: No fracture or subluxation.Mild lower cervical degenerative changes with small endplate osteophytes.N o prevertebral soft tissues swelling is identified. IMPRESSION: No acute intracranial or cervical spine findings.
[2023-04-19] MEDS ORDERED: INSULIN -REGULAR HUMAN 50 UNIT/0.5 ML ML ONE (19:05)
--- NOTE | 2023-04-19 20:01 | EDPHYS ---
Physician Documentation [facility] Name: Brandie Miranda Age: 67 yrs Sex: Female : 1955 Arrival Date: 04/19/2023 Time: 17:05 Bed 18 Private MD: ED Physician Buck Ontiveros HPI: 04/19 18:34 This 67 yrs old Female presents to ER via EMS with complaints of High Blood kb Sugar, High Blood Pressure. 18:34 Details of fall: The patient fell from an upright position, while walking. Onset: The kb symptoms/episode began/occurred just prior to arrival. Associated injuries: The patient sustained injury to the head, pain, neck injury, pain. Severity of symptoms: At their worst the symptoms were mild, in the emergency department the symptoms are unchanged. The patient has not experienced similar symptoms in the past. The patient has not recently seen a physician. Pt reports she tripped over her shoe and fell, hitting head and neck. EMS reports BGL read over 600 for them. Pt states she forgets to take her insulin at times. Historical: - Allergies: 17:19 No Known Allergies; kc6 - PMHx: 17:19 diabetes mellitus; Hypercholesterolemia; Hypertensive disorder; kc6 - PSHx: 17:19 Cholecystectomy; knee sx; kc6 - Immunization history:: Adult Immunizations up to date. - Social history:: Smoking status: Patient denies any tobacco usage or history of. ROS: 18:33 Constitutional: Negative for fever, chills, and weight loss. kb 18:33 Neck: Positive for pain at rest, of the right posterior aspect of neck and right lateral aspect of neck. 18:33 Neuro: Positive for headache. 18:33 All other systems are negative. Exam: 18:33 Constitutional: This is a well developed, well nourished patient who is awake, alert, kb and in no acute distress. Head/Face: Normocephalic, atraumatic. ENT: Moist Mucous membranes Neck: Trachea midline, no thyromegaly or masses palpated, and no cervical lymphadenopathy. Supple, full range of motion without nuchal rigidity, or vertebral point tenderness. No Meningismus. Cardiovascular: Regular rate and rhythm with a normal S1 and S2. No gallops, murmurs, or rubs. No pulse deficits. Respiratory: Respirations even and unlabored. No increased work of breathing. Talking in full sentences Abdomen/GI: Soft, non-tender. No distention Skin: Warm, dry with normal turgor. Normal color. MS/ Extremity: Pulses equal, no cyanosis. Neurovascular intact. Full, normal range of motion. Neuro: Awake and alert, GCS 15, oriented to person, place, time, and situation. Moves all extremities. Normal gait. Vital Signs: 17:18 BP 186 / 78; Pulse 77; Resp 18 S; Temp 97.6(O); Pulse Ox 99% on R/A; Weight 70.76 kg kc6 (R); Height 5 ft. 3 in. (R); 18:17 BP 167 / 73; Pulse 76; Resp 17 S; Pulse Ox 97% on R/A; kc6 18:59 Pulse 73; Resp 17 S; Pulse Ox 100% on R/A; kc6 20:14 BP 165 / 70; Pulse 70; Resp 19; Pulse Ox 98% on R/A; kl 17:18 Body Mass Index 27.63 (70.76 kg, 160.02 cm) kc6 MDM: 17:15 Patient medically screened. kb 18:34 Data reviewed: vital signs, nurses notes. kb 19:58 Differential diagnosis: closed head injury, contusion, fracture, strain, hyperglycemia, kb DKA. Historians other than the Patient: EMS: [facility]. Counseling: I had a detailed discussion with the patient and/or guardian regarding the historical points, exam findings, and any diagnostic results supporting the discharge/admit diagnosis, lab results, radiology results, the need for outpatient follow up, a family practitioner, to return to the emergency department if symptoms worsen or persist or if there are any questions or concerns that arise at home. 04/19 17:18 Order name: CBC with Diff; Complete Time: 17:55 kb 04/19 17:18 Order name: Basic Metabolic Panel; Complete Time: 18:12 kb 04/19 19:56 Order name: Glucose, Ancillary Testing; Complete Time: 19:58 EDMS 04/19 17:18 Order name: CT Head C Spine; Complete Time: 18:13 kb 04/19 17:18 Order name: IV Start; Complete Time: 17:36 kb Administered Medications: 17:36 Drug: NS 0.9% IV 1000 ml Route: IV; Rate: 1000 ml; Site: right antecubital; kc6 19:00 Follow up: Response: No adverse reaction; IV Status: Completed infusion; IV Intake: kc6 1000ml 19:00 Drug: Insulin Regular Human IVP 10 units {Co-Signature: (Antonio Howard RN).} Route: kc6 IVP; Site: right antecubital; 20:14 Follow up: Response: No adverse reaction kl Disposition: 04/20 11:28 Co-signature as Attending Physician, Buck Ontiveros DO I was immediately available on-site ms3 in the Emergency Department for consultation in the care of the patient. Disposition Summary: 04/19/23 20:00 Discharge Ordered Location: Home kb Condition: Stable kb Diagnosis - Unspecified injury of head, initial encounter kb - Fall on same level from slipping, tripping and stumbling without subsequent kb striking against object - Hyperglycemia, unspecified kb Followup: kb - With: Emergency Department - When: As needed - Reason: Worsening of condition Followup: kb - With: Private Physician - When: 2 - 3 days - Reason: Recheck today's complaints, Continuance of care, Re-evaluation by your physician Discharge Instructions: - Discharge Summary Sheet kb - Hyperglycemia, [id number] kb - Head Injury, Adult, [id number] kb Forms: - Medication Reconciliation Form kb - Thank You Letter kb - Antibiotic Education kb - Prescription Opioid Use kb - Patient Portal Instructions kb - Leadership Thank You Letter kb Signatures: Dispatcher [employer] EDRossy Alba, PAOLA EVAPORATOR HELPER-Buck Deshpande DO DO ms3 Yarely Gamble RN RN kcNikole Rogers RN, Brian RN bp
--- NOTE | 2023-04-19 20:01 | ER ---
Nurse's Notes [facility] Name: Brandie Miranda Age: 67 yrs Sex: Female : 1955 Arrival Date: 04/19/2023 Time: 17:05 Bed 18 Private MD: Diagnosis: Unspecified injury of head, initial encounter;Fall on same level from slipping, tripping and stumbling without subsequent striking against object;Hyperglycemia, unspecified Presentation: 04/19 17:18 Chief complaint: EMS states: pt fell and hit her head at work. denies LOC. pt was kc6 hypertensive and BGL was reading high or greater than 600 for EMS. Coronavirus screen: At this time, the client does not indicate any symptoms associated with coronavirus-19. Ebola Screen: No symptoms or risks identified at this time. Initial Sepsis Screen: Does the patient meet any 2 criteria? No. Patient's initial sepsis screen is negative. Does the patient have a suspected source of infection? No. Patient's initial sepsis screen is negative. Risk Assessment: Do you want to hurt yourself or someone else? Patient reports no desire to harm self or others. Onset of symptoms was April 19, 2023. 17:18 Method Of Arrival: EMS: [facility] kc6 17:18 Acuity: NEREYDA 3 kc6 Triage Assessment: 17:19 General: Appears in no apparent distress. comfortable, Behavior is calm, cooperative, kc6 appropriate for age. Pain: Complains of pain in head. EENT: No signs and/or symptoms were reported regarding the EENT system. Neuro: Level of Consciousness is awake, alert, obeys commands, Oriented to person, place, time, situation, Appropriate for age. Cardiovascular: Capillary refill < 3 seconds. Respiratory: Airway is patent Trachea midline Respiratory effort is even, unlabored, Respiratory pattern is regular, symmetrical. GI: No signs and/or symptoms were reported involving the gastrointestinal system. : No signs and/or symptoms were reported regarding the genitourinary system. Derm: No signs and/or symptoms reported regarding the dermatologic system. Skin is intact, is healthy with good turgor, Skin is pink, warm \T\ dry. Musculoskeletal: No signs and/or symptoms reported regarding the musculoskeletal system. Circulation, motion, and sensation intact. Capillary refill < 3 seconds, Range of motion: intact in all extremities. Historical: - Allergies: 17:19 No Known Allergies; kc6 - PMHx: 17:19 diabetes mellitus; Hypercholesterolemia; Hypertensive disorder; kc6 - PSHx: 17:19 Cholecystectomy; knee sx; kc6 - Immunization history:: Adult Immunizations up to date. - Social history:: Smoking status: Patient denies any tobacco usage or history of. Screenin:20 [facility] ED Fall Risk Assessment (Adult) History of falling in the last 3 months, kc including since admission Yes- single mechanical fall (1 pt) Confusion or Disorientation No (0 pts) Intoxicated or Sedated No (0 pts) Impaired Gait No (0 pts) Mobility Assist Device Used No (0 pt) Altered Elimination No (0 pt) Score/Fall Risk Level 0 - 2 = Low Risk. Abuse screen: Denies threats or abuse. Denies injuries from another. Nutritional screening: No deficits noted. Tuberculosis screening: No symptoms or risk factors identified. Assessment: 17:21 Reassessment: please see triage assessment. [facility] 18:17 Reassessment: Patient appears in no apparent distress at this time. No changes from [facility] previously documented assessment. Patient and/or family updated on plan of care and expected duration. Pain level reassessed. Patient is alert, oriented x 3, equal unlabored respirations, skin warm/dry/pink. 20:14 Reassessment: Patient appears in no apparent distress at this time. Patient denies pain kl at this time. Patient states feeling better. Patient states symptoms have improved. Vital Signs: 17:18 BP 186 / 78; Pulse 77; Resp 18 S; Temp 97.6(O); Pulse Ox 99% on R/A; Weight 70.76 kg kc6 (R); Height 5 ft. 3 in. (R); 18:17 BP 167 / 73; Pulse 76; Resp 17 S; Pulse Ox 97% on R/A; kc6 18:59 Pulse 73; Resp 17 S; Pulse Ox 100% on R/A; kc6 20:14 BP 165 / 70; Pulse 70; Resp 19; Pulse Ox 98% on R/A; kl 17:18 Body Mass Index 27.63 (70.76 kg, 160.02 cm) [facility] ED Course: 17:13 Patient arrived in ED. [facility] 17:15 Rossy Moreno FNP-C is PHCP. kb 17:15 Buck Ontiveros DO is Attending Physician. kb 17:19 Triage completed. kc6 17:19 Arm band placed on. kc6 17:20 Patient has correct armband on for positive identification. Bed in low position. Call kc6 light in reach. Side rails up X2. 17:36 Yarely Gamble RN is Primary Nurse. kc6 17:36 Inserted saline lock: 20 gauge in right antecubital area, using aseptic technique. kc6 Blood collected. 18:03 CT Head C Spine In Process Unspecified. EDMS 19:06 Report given to Antonio Howard RN. kc6 19:07 Primary Nurse role handed off by Yarely Gamble RN bp 19:07 Antonio Howard RN is Primary Nurse. bp 20:14 No provider procedures requiring assistance completed. IV discontinued, intact, kl bleeding controlled, No redness/swelling at site. Pressure dressing applied. Administered Medications: 17:36 Drug: NS 0.9% IV 1000 ml Route: IV; Rate: 1000 ml; Site: right antecubital; kc6 19:00 Follow up: Response: No adverse reaction; IV Status: Completed infusion; IV Intake: kc6 1000ml 19:00 Drug: Insulin Regular Human IVP 10 units {Co-Signature: (Antonio Howard RN).} Route: kc6 IVP; Site: right antecubital; 20:14 Follow up: Response: No adverse reaction kl Intake: 19:00 IV: 1000ml; Total: 1000ml. kc6 Outcome: 20:00 Discharge ordered by MD. kb 20:15 Discharged to home ambulatory. kl 20:15 Condition: stable 20:15 Discharge instructions given to patient, Instructed on discharge instructions, follow up and referral plans. medication usage, Demonstrated understanding of instructions, follow-up care, medications. 20:16 Patient left the ED. kl Signatures: Dispatcher [employer] EDMD Rossy Moreno FNP-C FNP-Nikole Sherman RN RN kl Peltier, Brian RN Yarely Christina RN RN kc6 Peltier, Brian RN bp
[2023-04-19 20:48] VITALS: TEMP 97.6
[2023-04-19 21:04] VITALS: BP 165/70; O2SAT 98
== END 2023-04-19 20:16 | disposition home or self-care (01) ==
LOC: ER 17:05
DX: S09.90XA Unspecified injury of head, initial encounter (principal); E11.65 Type 2 diabetes mellitus with hyperglycemia; W01.0XXA Fall on same level from slipping, tripping and stumbling without subsequent striking against object, initial encounter
CPT/HCPCS: 36415; 70450; 72125; 80048; 82947; 85025; J1815; J7030

== ENCOUNTER 2024-02-16 11:13 | Emergency (ER) | payer OTHER ==
[2024-02-16] MEDS ORDERED: ROCURONIUM 50 MG/5 ML VIAL IV ONE (11:14)
[2024-02-16] MEDS ORDERED: SUCCINYLCHOLINE 20 MG/ML (10 ML) IV ONE (11:14)
[2024-02-16] MEDS ORDERED: NA CHLORIDE 0.9% 1,000 ML ONE ×3 (11:28→16:22)
[2024-02-16 11:46] LABS: Absolute Lymphocytes (CBC) 1.4 K/uL (0.7-4.9); Absolute Monocytes 0.3 K/uL (0.1-1.3); Absolute Neutrophil 8.2 K/uL (1.8-8.0); Basophils % 0.5 % (0-1.3); Eosinophils % 0.1 % (0-4.4); Hematocrit 36.5 % (36.0-45.0); Hemoglobin 12.4 g/dL (12.0-15.0); Lymphocytes % 14.2 % (15.3-44.8); MCH 28.7 pg (27.0-35.0); MCHC 34.1 g/dL (32.0-36.0); MCV 84.4 fL (80-100); MPV 7.6 fL (7.6-11.3); Monocytes % 2.7 % (3.3-12.3); Neutrophils % 82.5 % (41.7-73.7); Nucleated Red Blood Cells % 0.1 % (0-0); Platelets 195 thou/uL (152-406); RBC Red Blood Cell Count 4.32 M/uL (3.86-4.86); Red Cell Distribution Width 14.1 % (12.1-15.2)
[2024-02-16] MEDS ORDERED: propofoL 1,000 MG/100 ML VIAL IV ONE (11:48)
[2024-02-16 11:50] LABS: PT Prothrombin Time 15.8 SECONDS (9.4-12.5); PTT, Activated Partial Thromb 28.4 SECONDS (24.3-36.9); Protime INR 1.45
--- NOTE | 2024-02-16 11:50 | RAD REPORT ---
EXAM DESCRIPTION: RAD - Chest Single View - 02/16/2024 11:44 am CLINICAL HISTORY: post intubation Chest pain. COMPARISON: Chest Pa And Lat (2 Views) dated 04/13/2022; Chest Single View dated 05/06/2021 FINDINGS: Portable technique limits examination quality. The lungs are grossly clear. The heart is normal in size. Tip of the endotracheal tube is at the leve l of the superior aortic arch.
[2024-02-16 12:03] LABS: Albumin 3.5 g/dL (3.4-5.0); Albumin/Globulin Ratio 0.9 (1.1-1.8); Anion Gap 13.6 mEq/L (5.0-15.0); Bilirubin Total 1.4 mg/dL (0.2-1.0); Globulin 4.1 g/dL (2.3-3.5); Potassium 3.6 mEq/L (3.5-5.1); Protein, Total 7.6 g/dL (6.4-8.2)
--- NOTE | 2024-02-16 12:04 | RAD REPORT ---
EXAM DESCRIPTION: CT - Ct Stroke Brain Wo Cont - 02/16/2024 11:58 am CLINICAL HISTORY: STROKE ALERT Headache, drowsiness, CVA symptomology COMPARISON: No comparisons TECHNIQUE: All CT scans are performed using dose optimization technique as appropriate and may inclu de automated exposure control or mA/KV adjustment according to patient size. FINDINGS: No intracranial hemorrhage, hydrocephalus or extra-axial fluid collection.No areas of brai n edema or evidence of midline shift. The paranasal sinuses and mastoids are clear. The calvarium is intact. IMPRESSION: No acute intracranial abnormality.
[2024-02-16] MEDS ORDERED: ACETAMINOPHEN 650MG/RECT SUPP PR ONE (12:05)
--- NOTE | 2024-02-16 12:05 | RAD REPORT ---
EXAM DESCRIPTION: CT - Head angio - 02/16/2024 12:00 pm CLINICAL HISTORY: STROKE Headache, drowsiness, CVA symptomology COMPARISON: Ct Stroke Brain Wo Cont dated 02/16/2024 TECHNIQUE: CT angiography of the head was performed with MIPs. All CT scans are performed using dose optimization technique as appropriate and may include automated exposure control or mA/KV adjustment according to patient size. FINDINGS: No evidence of large vessel occlusion. No evidence of aneurysm is detected. No flow-limiti ng stenosis or vascular malformation identified. Antegrade flow is seen in the vertebral arteries. The vertebral arteries are codominant. The visualized dural venous sinuses are patent. IMPRESSION: No significant flow abnormality is detected.
--- NOTE | 2024-02-16 12:08 | RAD REPORT ---
EXAM DESCRIPTION: CT - Neck Angio - 02/16/2024 11:59 am CLINICAL HISTORY: STROKE Headache, drowsiness, CVA symptomology COMPARISON: Head C Spine Mpr Wo Con dated 04/19/2023; Head C Spine Mpr Wo Con dated 10/05/2021; Head C Spine Mpr Wo Con dated 05/06/2021 TECHNIQUE: CT angiography of the neck vessels was performed with MIPs. All CT scans are performed using dose optimization technique as appropriate and may include automated exposure control or mA/KV adjustment according to patient size. FINDINGS: A left aortic arch is identified with normal three vessel configuration of the great vesse ls. No significant flow abnormality is seen of the common carotid bilaterally. No significant stenosis is identified involving the cervical segments of both internal carotid arteri es. Normal flow is seen within both vertebral arteries. IMPRESSION: No significant flow abnormality of the neck vessels is identified. NASCET criteria used. Mild 0-49% stenosis Moderate 50-69% stenosis Severe 70-99% stenosis
[2024-02-16] MEDS ORDERED: FENTANYL CITR 100 MCG/2 ML ONE ×2 (12:32→16:22)
[2024-02-16] MEDS ORDERED: MIDAZOLAM HCL 2 MG/2 ML INJ ONE ×2 (12:33→12:35)
[2024-02-16] MEDS ORDERED: MIDAZOLAM HCL 5 ML ONE (12:35)
[2024-02-16] MEDS ORDERED: MIDAZOLAM HCL IN 0.9 % NACL/PF 100 MG/100 ML BAG IVPB ONE (13:31)
[2024-02-16 13:54] LABS: CSF Glucose 137 mg/dL (40-70)
[2024-02-16 13:55] LABS: Sqamous Epithelial <5 /HPF (None Seen); Urine Bacteria <20 /HPF (<20); Urine Bilirubin NEGATIVE (Negative); Urine Blood 2+ (Negative); Urine Clarity Clear (Clear); Urine Color Yellow (Yellow); Urine Culture Reflex Order NOT NEEDED; Urine Glucose 1+ (Negative); Urine Ketones NEGATIVE (Negative); Urine Micro Reflex YN NO BILL MICROSCOPIC; Urine Mucus Slight /HPF (None Seen); Urine Nitrite NEGATIVE (Negative); Urine Protein 1+ (Negative); Urine Urobilinogen Normal (Normal); Urine WBC <5 /HPF (<5); Urine pH 5.5 (5.0-7.0)
[2024-02-16 13:56] LABS: Specific Gravity > 1.030 (1.005-1.030)
[2024-02-16] MEDS ORDERED: DOXYCYCLINE 100 MG in NA CHLORIDE 0.9% 100 ML IVPB SCH (14:00)
[2024-02-16] MEDS ORDERED: MIDAZOLAM HCL IN 0.9 % NACL/PF 100 MG/100 ML BAG IVPB SCH (14:00)
[2024-02-16] MEDS ORDERED: VANCOMYCIN 500 MG/VIAL ONE (14:03)
[2024-02-16] MEDS ORDERED: CEFEPIME 2 GM VIAL ONE (14:03)
[2024-02-16] MEDS ORDERED: VANCOMYCIN 1 GM/VIAL ONE (14:03)
[2024-02-16] MEDS ORDERED: NA CHLORIDE 0.9% 250 ML ONE (14:03)
[2024-02-16] MEDS ORDERED: NA CHLORIDE 0.9% 100 ML ONE (14:03)
--- NOTE | 2024-02-16 14:33 | EDPHYS ---
Physician Documentation [facility] Name: Brandie Miranda Age: 68 yrs Sex: Female : 1955 Arrival Date: 02/16/2024 Time: 11:13 Bed 2 Private MD: ED Physician Leticia Esposito HPI: 02/15 11:47 This 68 yrs old Female presents to ER via Other with complaints of gb1 Unresponsive. 11:47 68-year-old female presents by wheelchair and POV for becoming unresponsive gb1 after eating breakfast with her this morning. She went to pick him up for dialysis they went to eat and then she vomited and became unresponsive prior to leaving. The patient has a history of diabetes, hyperlipidemia and hypertension. This history is provided mostly by the as the patient's mental status restricts her from giving any information at this time.. Historical: - Allergies: 11:13 No Known Allergies; kc6 - PMHx: 11:37 diabetes mellitus; Hypercholesterolemia; Hypertensive disorder; aa5 - PSHx: 11:37 Cholecystectomy; knee sx; aa5 - Immunization history:: Adult Immunizations unknown. - Infectious Disease History:: Denies. - Social history:: Smoking status: unknown. Exam: 11:47 Constitutional: Patient is covered in vomit, she is awake but she is not alert Eyes: gb1 Pupils equal round and reactive to light, extra-ocular motions intact. Lids and lashes normal. Conjunctiva and sclera are non-icteric and not injected. Cornea within normal limits. Periorbital areas with no swelling, redness, or edema. ENT: Nares patent. No nasal discharge, no septal abnormalities noted. Tympanic membranes are normal and external auditory canals are clear. Oropharynx with no redness, swelling, or masses, exudates, or evidence of obstruction, uvula midline. Mucous membranes moist. Neck: Trachea midline, no thyromegaly or masses palpated, and no cervical lymphadenopathy. Supple, full range of motion without nuchal rigidity, or vertebral point tenderness. No Meningismus. Chest/axilla: Normal chest wall appearance and motion. Nontender with no deformity. No lesions are appreciated. Cardiovascular: Tachycardic and rhythm with a normal S1 and S2. No gallops, murmurs, or rubs. Normal PMI, no JVD. No pulse deficits. Abdomen/GI: Soft, non-tender, with normal bowel sounds. No distension or tympany. No guarding or rebound. No evidence of tenderness throughout. Back: No spinal tenderness. No costovertebral tenderness. Full range of motion. Skin: Diaphoretic with normal turgor. Normal color with no rashes, no lesions, and no evidence of cellulitis. 11:47 Constitutional: The patient appears diaphoretic, listless, in obvious distress, moderately distressed, 11:47 Respiratory: moderate respiratory distress is noted, Respirations: labored breathing, shallow respirations, tachypnea, Breath sounds: are clear throughout, 11:47 Skin: Vital Signs: 11:13 BP 157 / 71; Pulse 130; Resp 28 S; Pulse Ox 86% on R/A; aa5 11:15 Temp 105.8(R); aa5 11:25 BP 168 / 68; Pulse 127; Resp 30 A; Pulse Ox 100% on BVM; aa5 11:34 BP 174 / 88; Pulse 130; Resp 24 A; Pulse Ox 100% on ETT ambu; aa5 12:07 BP 109 / 61; Pulse 106; Resp 20; Pulse Ox 100% ; db 12:12 Weight 72.4 kg (M); db 12:15 BP 100 / 57; Pulse 107; Resp 17; Pulse Ox 100% ; db 12:20 Temp 105.3(R); aa5 12:30 BP 107 / 59; Pulse 109; Resp 17; Pulse Ox 100% ; db 12:45 BP 71 / 51; Pulse 98; Resp 16; Pulse Ox 100% ; db 13:05 BP 85 / 51; Pulse 97; Resp 16; Pulse Ox 100% on ETT vent; db 13:16 BP 85 / 51; Pulse 101; Resp 18 A; Temp 101.6(O); Pulse Ox 100% on ETT vent; es3 13:20 BP 84 / 54; Pulse 96; Resp 16; Pulse Ox 100% on ETT vent; db 13:30 BP 92 / 57; Pulse 97; Resp 16; Pulse Ox 100% ; db 13:45 BP 93 / 55; Pulse 95; Resp 16; Pulse Ox 100% ; db 13:50 BP 87 / 56; Pulse 95; Resp 16; Pulse Ox 100% ; db 14:00 BP 107 / 62; Pulse 95; Resp 17; Pulse Ox 100% on ETT vent; db 15:05 BP 104 / 61; Pulse 94; Resp 16 A; Temp 101.2(R); Pulse Ox 100% on ETT vent; kc6 17:54 BP 135 / 65; Pulse 79; Resp 18 A; Temp 99.7(R); Pulse Ox 100% on ETT vent; kc6 Ben Coma Score: 11:47 Eye Response: to pain(2). Motor Response: none(1). Verbal Response: none(1). Total: 4. gb1 Procedures: 11:47 Intubation: Intubated orally using # 4 Jovanna blade with 7.0 mm ETT. was successful gb1 on first attempt. Ventilated with ventilator. Tube secured with ETT perez at right side of mouth measured 26 cm at lip. measured 24 cm at teeth. Placement verified by Patient tolerated well. Bah cath inserted by myself - 20 Fr. Returned clear yellow urine. 14:32 Lumbar Puncture: Patient placed in right lateral decubitus position. Prepped with gb1 Betadine. Draped using sterile technique. clear fluid. Puncture site dressed with Patient tolerated well. MDM: 11:33 Patient medically screened. rt 11:47 Differential diagnosis: viral Infection, bacterial infection, pneumonia UTI, gb1 meningitis. Data reviewed: nurses notes, lab test result(s), EKG, radiologic studies, CT scan, plain films. ED course: 68-year-old female with history of diabetes, hyperlipidemia and hypertension here with acute altered mental status and she is febrile at 105.8 Fahrenheit. Patient appeared obtunded and unresponsive my working diagnosis is CVA versus TIA, subarachnoid hemorrhage, subdural hematoma, toxicological overdose, or versus ingestion, sepsis.. 14:32 Management of patient was discussed with the following: Roller Cleaner: Patient had a gb1 negative CT brain and CTA of the brain, with her fever of 105 and a negative urinalysis I doubt UTI and a negative chest x-ray no focal pneumonia I have to presume the patient has a meningitis. I suspect viral versus bacterial. I started IV vancomycin, cefepime, acyclovir and doxycycline. I discussed the case with the inpatient ground nuclear weapons assembly officer Dr. Montes De Oca at [facility] and he accepts for transfer.. Discussion of test interpretation with radiology: I had a discussion with radiology regarding a test interpretation. I discussed with Dr. Zheng the CT brain and CTA brain results which were both read as negative.. 17:47 ED course: So upon further questioning by the patient's daughter I found out that 10 gb1 days ago she started Cymbalta. Patient started Cymbalta for paresthesias in her lower extremities. Putting together the clinical history of her clinical presentation on arrival to the emergency department today and her temperature of 105.8 Fahrenheit I am concerned that the patient may have a serotonin syndrome. She did get IV Versed and she has been sedated and mechanically ventilated as she is intubated for not being able to protect her airway. I discussed the diagnostic findings with Dr. Montes De Oca at 1749.. 02/15 11:36 Order name: CBC with Diff; Complete Time: 14: [facility] 02/15 11:36 Order name: High Sensitivity Troponin; Complete Time: 14: [facility] 02/15 11:36 Order name: Protime (+inr); Complete Time: 14: [facility] 02/15 11:36 Order name: Ptt, Activated; Complete Time: 14: [facility] 02/15 11:43 Order name: Blood Culture Adult (2) 02/15 11:43 Order name: CMP; Complete Time: 14:27 [facility] 02/15 11:43 Order name: Lactate w/ 2H reflex if indic.; Complete Time: 14:27 [facility] 02/15 12:06 Order name: Csf Culture 02/15 12:06 Order name: Fluid Cell Count,Body; Complete Time: 18:05 02/15 12:06 Order name: Spinal Fluid Profile; Complete Time: 16:33 02/15 12:08 Order name: Urine W/Microscopic (UAM); Complete Time: 14:27 02/15 13:35 Order name: glucometer results - FOR PT WITH NO ID; Complete Time: 14:27 db 02/15 15:15 Order name: SARS RAPID; Complete Time: 16:47 [facility] 02/15 15:15 Order name: Flu; Complete Time: 16:47 [facility] 02/15 15:52 Order name: Ghost Lactate-NO COLLECT Timer; Complete Time: 15:57 EDMS 02/15 11:35 Order name: XRAY Chest (1 view); Complete Time: 14:27 [facility] 02/15 11:36 Order name: CT Stroke Brain w/o Contrast; Complete Time: 14:27 [facility] 02/15 11:53 Order name: Head angio; Complete Time: 14:27 [facility] 02/15 11:53 Order name: Neck Angio; Complete Time: 14:27 [facility] 02/15 16:34 Order name: CT Chest, Abdomen, Pelvis - W/Contrast; Complete Time: 18:05 [facility] 02/15 11:36 Order name: EKG; Complete Time: 11:36 [facility] 02/15 11:36 Order name: Accucheck; Complete Time: 11:38 [facility] 02/15 11:36 Order name: Cardiac monitoring; Complete Time: 11:51 [facility] 02/15 11:36 Order name: EKG - Nurse/Tech; Complete Time: 11:38 [facility] 02/15 11:36 Order name: IV Saline Lock; Complete Time: 11:45 [facility] 02/15 11:36 Order name: Labs collected and sent; Complete Time: 11:45 [facility] 02/15 11:36 Order name: NPO; Complete Time: 11:45 [facility] 02/15 11:36 Order name: O2 Per Protocol; Complete Time: 11:45 [facility] 02/15 11:36 Order name: O2 Sat Monitoring; Complete Time: 11:45 [facility] 02/15 11:36 Order name: Stroke Swallow Screen; Complete Time: 11:51 [facility] 02/15 12:06 Order name: Lumbar Puncture Consent; Complete Time: 12:28 02/15 12:06 Order name: Lumbar Puncture Setup; Complete Time: 12:28 [facility] 02/15 12:08 Order name: Bah; Complete Time: 12:12 gb Administered Medications: 17:56 Discontinued: propofol5 mcg/kg/min IV at calculated rate See Administration 6 Instructions; Standard concentration 1000 mg / 100 mL; Recommended max rate 50 mcg/kg/min; Titrate 2 mcg/kg/min every 5 minutes to achieve goal (see titration policy); Goal parameter RASS score 0 to -2 11:32 Drug: Etomidate IVP 20 mg IVP once; VO received prior to intubation Route: IVP; Site: aa5 left antecubital; 12:00 Follow up: Response: No adverse reaction; RASS: Moderate sedation (-3) kc6 11:32 Drug: Succinylcholine IVP 100 mg IVP once; VO received prior to intubation Route: IVP; aa5 Site: left antecubital; 12:00 Follow up: Response: No adverse reaction kc6 11:50 Drug: Propofol IV 5 mcg/kg/min IV at calculated rate See Administration Instructions; db Standard concentration 1000 mg / 100 mL; Recommended max rate 50 mcg/kg/min; Titrate 2 mcg/kg/min every 5 minutes to achieve goal (see titration policy); Goal parameter RASS score 0 to -2 Route: IV; Rate: calculated rate; Site: left antecubital; 13:40 Follow up: Response: No adverse reaction; IV Status: Order to discontinue infusion kc6 12:12 Drug: Acetaminophen CO Suppository 650 mg CO once Route: CO; db 13:17 Follow up: Response: No adverse reaction; Temperature is decreased es3 12:14 Drug: NS 0.9% IV 30 ml/kg IV at [id number] ml/hr bolus Route: IV; Rate: [id number] ml/hr; db Site: left antecubital; 13:14 Follow up: Response: No adverse reaction; IV Status: Completed infusion; IV Intake: kc6 1000ml 12:38 Drug: Midazolam IVP or IV 9 mg IVP once Route: IVP; Site: left antecubital; aa5 12:39 Follow up: Response: Patient is sedated aa5 12:39 Drug: fentaNYL (PF) IVP 100 mcg IVP once {Note: administered by Dr.Blocker Holloway} Route: aa5 IVP; Site: left antecubital; 12:39 Follow up: Response: Patient is sedated aa5 13:00 CANCELLED (Physician Discretion): fentanyl (pf)25 mcg/kg/h IV at per protocol See aa5 Administration Instructions; (Standard concentration 500 mcg / 50 mL NS [10 mcg / 1 mL); Recommended max rate 4 mcg/kg/hr; Titrate 0.25 mcg/kg/hr as often as every 3 minutes to achieve goal (see titration policy); Goal parameter RASS score 0 to -2 13:41 Drug: Midazolam IVP or IV 0.01 mg/kg/h IV at per protocol See Administration kc6 Instructions; (Standard concentration: 100 mg / 100 mL NS); Recommended max rate 0.1 mg/kg/hr; Titrate 0.01 mg/kg/hr as often as every 30 minutes to achieve goal (see titration policy); Goal parameter RASS 0 to -2 Route: IV; Rate: per protocol; Site: left antecubital; 13:42 Follow up: Response: No adverse reaction; RASS: Moderate sedation (-3); Rate change kc6 0.02 per protocol 14:15 Follow up: Response: No adverse reaction; RASS: Moderate sedation (-3); Rate change kc6 0.03 per protocol 14:45 Follow up: Response: No adverse reaction; RASS: Moderate sedation (-3); Rate change kc6 0.04 per protocol 15:12 Follow up: Response: No adverse reaction; Patient is sedated; Rate change 0.05 per kc6 protocol 15:52 Follow up: Response: No adverse reaction; RASS: Moderate sedation (-3); Rate change kc6 0.06 per protocol 18:29 Follow up: Response: No adverse reaction; IV Status: Infusion continued upon transfer kc 14:21 Drug: Cefepime IVPB 2 grams IVPB at 200 ml/hr once over 30 mins; (mix in NS 100 mL) kc6 Route: IVPB; Rate: 200 ml/hr; Infused Over: 30 mins; Site: left hand; 15:09 Follow up: Response: No adverse reaction; IV Status: Completed infusion; IV Intake: kc6 100ml 14:57 Drug: vancoMYCIN IVPB 20 mg/kg IVPB once; once over 2 hours; not to exceed 2 grams; kc6 (mix in 250 to 500mL NS) Route: IVPB; Site: left hand; 15:55 Follow up: Response: No adverse reaction; IV Status: Completed infusion; IV Intake: kc6 250ml 14:57 Drug: Acyclovir IVPB (20mg/kg) 20 mg/kg IVPB once Route: IVPB; Site: left hand; [facility] 15:55 Follow up: Response: No adverse reaction; IV Status: Completed infusion; IV Intake: kc6 100ml 14:57 Drug: NS 0.9% IV 1000 ml IV at 1000 ml once Route: IV; Rate: 1000 ml; Site: left [address]; 15:52 Follow up: Response: No adverse reaction; IV Status: Completed infusion; IV Intake: kc6 1000ml 16:29 Drug: NS 0.9% IV 1000 ml IV at 1000 ml once Route: IV; Rate: 1000 ml; Site: left hand; kc6 17:29 Follow up: Response: No adverse reaction; IV Status: Completed infusion; IV Intake: kc6 1000ml 16:30 Drug: fentaNYL (PF) IVP 25 mcg IVP once Route: IVP; Site: left antecubital; kc6 17:30 Follow up: Response: No adverse reaction kc6 17:05 Drug: Norepinephrine IV 0.1 mcg/kg/min IV at calculated rate See Administration kc6 Instructions; (Standard concentration 4 mg / 250 mL D5W); Recommended max rate 3 mcg/kg/min; Titrate 0.05 mcg/kg/min as often as every 5 minutes to achieve goal (see titration policy); Goal parameter MAP greater than 65 mmHg. Route: IV; Rate: calculated rate; Site: left hand; 17:30 Follow up: Response: No adverse reaction; Blood pressure is elevated kc6 17:55 Follow up: Response: No adverse reaction; Blood pressure is elevated; Rate change 0.05 kc6 mcg/kg/min 18:28 Follow up: Response: No adverse reaction; Blood pressure is elevated; IV Status: kc6 Infusion continued upon transfer Point of Care Testing: Blood Glucose: 11:21 Blood Glucose: 261 mg/dL; db Ranges: Critical Glucose Levels:Adult <50 mg/dl or >400 mg/dl <40 mg/dl or >180 mg/dl Disposition Summary: 02/16/24 14:32 Transfer Ordered Notes: Transfer Location: [place] [id number] Reason: Higher level of care gb1 Condition: Critical gb1 Problem: new gb1 Symptoms: are unchanged gb1 Accepting Physician: Samuel Montes De Oca(02/16/24 18:42) kc6 Diagnosis - Altered mental status, unspecified gb1 - Serotonin syndrome gb1 Forms: - Medication Reconciliation Form gb1 - SBAR form gb1 Critical care time excluding procedures: 11:47 Critical care time: Bedside Care: 100 minutes, Consultation: 45 minutes, Family gb1 Intervention: 30 minutes. Total time: 175 minutes 14:32 Critical care time: Bedside Care: 120 minutes, Consultation: 40 minutes, Family gb1 Intervention: 25 minutes. Total time: 185 minutes Signatures: Dispatcher [employer] Mattie De Los Santos RN RN aa5 Yarely Gamble RN RN kc6 Sandra Boston, RN RN db Mahesh Gracia MD MD rt Leticia Esposito MD MD gb1 Beverly Moses RN es3 Corrections: (The following items were deleted from the chart) 11:35 11:35 Chest Single View+RAD.RAD.BRZ ordered. EDMS EDMS 11:36 11:36 CBC+H.LAB.BRZ ordered. EDMS EDMS 11:36 11:36 Troponin High Sensitivity+C.LAB.BRZ ordered. EDMS EDMS 11:36 11:36 PROTIME (+INR)+COAG.LAB.BRZ ordered. EDMS EDMS 11:36 11:36 PTT, ACTIVATED+COAG.LAB.BRZ ordered. EDMS EDMS 11:43 11:43 BLOOD CULTURE*+BA.LAB.BRZ ordered. EDMS EDMS 11:43 11:43 COMPREHENSIVE METABOLIC PANEL+C.LAB.BRZ ordered. EDMS EDMS 11:43 11:43 LACTATE+C.LAB.BRZ ordered. EDMS EDMS 11:47 11:36 BASIC METABOLIC PANEL+C.LAB.BRZ ordered. EDMS EDMS 12:07 12:07 CSF Culture+BA.LAB.BRZ ordered. EDMS EDMS 12:07 12:07 FLUID CELL COUNT,BODY+H.LAB.BRZ ordered. EDMS EDMS 12:07 12:07 SPINAL FLUID PROFILE+LAB.LAB.BRZ ordered. EDMS EDMS 13:00 12:41 fentaNYL (PF) IV 25 mcg/kg/h IV at per protocol See Administration Instructions; aa5 (Standard concentration 500 mcg / 50 mL NS [10 mcg / 1 mL); Recommended max rate 4 mcg/kg/hr; Titrate 0.25 mcg/kg/hr as often as every 3 minutes to achieve goal (see titration policy); Goal parameter RASS score 0 to -2 ordered. aa5 13:36 13:36 GLUCATNOID ordered. EDMS EDMS 15:16 15:16 SARS-COV-2 Antigen Rapid+I.LAB.BRZ ordered. EDMS EDMS 15:16 15:16 Influenza Screen (A \T\ B)+BA.LAB.BRZ ordered. EDMS EDMS 17:53 14:32 Samuel Montes De Oca gb1 gb1 17:53 14:32 Meningitis, unspecified gb1 gb1 18:42 [facility]
--- NOTE | 2024-02-16 14:33 | ER ---
Nurse's Notes [facility] Name: Brandie Miranda Age: 68 yrs Sex: Female : 1955 Arrival Date: 02/16/2024 Time: 11:13 Bed 2 Private MD: Diagnosis: Altered mental status, unspecified;Serotonin syndrome Presentation: 02/15 11:13 Chief complaint: Pt's states "she went to pick me up from dialysis and we went aa5 to eat breakfast, after eating breakfast she started throwing up and stopped talking". Received pt in vehicle, breathing, emesis noted on clothes, unresponsive. 11:13 Risk Assessment: Do you want to hurt yourself or someone else? Unable to obtain. Onset aa5 of symptoms was February 16, 2024. 11:13 Acuity: NEREYDA 1 aa5 11:13 Method Of Arrival: Other aa5 11:13 An acute neurological deficit is present. Pre-hospital glucose is not applicable to aa5 this patient. 11:13 Initial Sepsis Screen: Does the patient meet any 2 criteria? RR > 20 per min. Temp kc6 <36.0*C (96.8*F)) or > 38.3*C (100.9*F). Altered Mental Status. HR > 90 bpm. Yes Does the patient have a suspected source of infection? No. Patient's initial sepsis screen is negative. 11:15 Coronavirus screen: fever. aa5 11:15 Ebola Screen: Unable to complete the Ebola screening because:. aa5 Triage Assessment: 11:13 The onset of the patients symptoms was February 16, 2024 at 11:00. kc6 Stroke Activation: Symptom onset < 3 hours Physician: ED Attending; Name: ; Notified At: ; Arrived At: Physician: Mid-Level Provider; Name: ; Notified At: ; Arrived At: Physician: [not used]; Name: ; Notified At: ; Arrived At: Physician: [not used]; Name: ; Notified At: ; Arrived At: Physician: [not used]; Name: ; Notified At: ; Arrived At: Historical: - Allergies: 11:13 No Known Allergies; kc6 - PMHx: 11:37 diabetes mellitus; Hypercholesterolemia; Hypertensive disorder; aa5 - PSHx: 11:37 Cholecystectomy; knee sx; aa5 - Immunization history:: Adult Immunizations unknown. - Infectious Disease History:: Denies. - Social history:: Smoking status: unknown. Screenin:13 [facility] ED Fall Risk Assessment (Adult) History of falling in the last 3 months, kc6 including since admission No falls in past 3 months (0 pts) Confusion or Disorientation Yes (5 pts) Intoxicated or Sedated No (0 pts) Impaired Gait No (0 pts) Mobility Assist Device Used No (0 pt) Altered Elimination No (0 pt) Score/Fall Risk Level 3 or more points = High Risk. Abuse screen: Denies threats or abuse. Denies injuries from another. Nutritional screening: No deficits noted. Tuberculosis screening: No symptoms or risk factors identified. 13:04 [place] Swallow Protocol Exclusion Criteria: Unable to remain alert for testing: Yes. es3 Assessment: 11:18 Reassessment: code stroke called. kc6 11:18 Reassessment: Per Dr. Esposito, pt is unstable for CT at this time and is requiring kc6 emergent intubation. 11:20 Reassessment: PT BROUGHT TO ROOM 1 A CODE STROKE UNRESPONSIVE VOMITED ON SELF. db 11:30 Reassessment: UNABLE TO PERFORM NIH ASSESSMENT DUE TO DECREASED LOC AND UNRESPONSIVE. db 11:35 Reassessment: Pt to CT via stretcher, accompanied by RT and Sandra RN. aa5 11:55 Reassessment: Pt back from CT via stretcher, accompanied by RT and Sandra RN. aa5 12:00 Reassessment: No changes from previously documented assessment. Patient and/or family db updated on plan of care and expected duration. Pain level reassessed. 12:35 Reassessment: Pt awake and attempting to reach for ET tube, Yarely Shannon RN at bedside aa5 with patient. was notified. . 13:00 Reassessment: No changes from previously documented assessment. Patient and/or family db updated on plan of care and expected duration. Pain level reassessed. 13:37 General: Appears distressed, Behavior is unresponsive. Pain: Unable to use pain scale. db Patient is unresponsive. Neuro: Level of Consciousness is unresponsive, Oriented to none. Respiratory: Airway is patent Respiratory effort is weak, Respiratory pattern is snoring. GI: VOMIT ON PATIENT CLOTHES. 13:41 Reassessment: FAMILY AT BEDSIDE. db 13:41 [place] [facility]allow Protocol Exclusion Criteria: Unable to remain alert for testing: Yes kc6 Result: FAIL MD Notified: Leticia Esposito MD. 14:11 Reassessment: No changes from previously documented assessment. Patient and/or family db updated on plan of care and expected duration. Pain level reassessed. INTUBATED AND SEDATED. 17:28 Reassessment: pt to CT via stretcher with RT, Sandra Boston RN and electronics tech. pt on kc6 continuous monitoring during transfer to CT department. 17:56 Reassessment: pt returned from CT at this time. kc6 Vital Signs: 11:13 BP 157 / 71; Pulse 130; Resp 28 S; Pulse Ox 86% on R/A; aa5 11:15 Temp 105.8(R); aa5 11:25 BP 168 / 68; Pulse 127; Resp 30 A; Pulse Ox 100% on BVM; aa5 11:34 BP 174 / 88; Pulse 130; Resp 24 A; Pulse Ox 100% on ETT ambu; aa5 12:07 BP 109 / 61; Pulse 106; Resp 20; Pulse Ox 100% ; db 12:12 Weight 72.4 kg (M); db 12:15 BP 100 / 57; Pulse 107; Resp 17; Pulse Ox 100% ; db 12:20 Temp 105.3(R); aa5 12:30 BP 107 / 59; Pulse 109; Resp 17; Pulse Ox 100% ; db 12:45 BP 71 / 51; Pulse 98; Resp 16; Pulse Ox 100% ; db 13:05 BP 85 / 51; Pulse 97; Resp 16; Pulse Ox 100% on ETT vent; db 13:16 BP 85 / 51; Pulse 101; Resp 18 A; Temp 101.6(O); Pulse Ox 100% on ETT vent; es3 13:20 BP 84 / 54; Pulse 96; Resp 16; Pulse Ox 100% on ETT vent; db 13:30 BP 92 / 57; Pulse 97; Resp 16; Pulse Ox 100% ; db 13:45 BP 93 / 55; Pulse 95; Resp 16; Pulse Ox 100% ; db 13:50 BP 87 / 56; Pulse 95; Resp 16; Pulse Ox 100% ; db 14:00 BP 107 / 62; Pulse 95; Resp 17; Pulse Ox 100% on ETT vent; db 15:05 BP 104 / 61; Pulse 94; Resp 16 A; Temp 101.2(R); Pulse Ox 100% on ETT vent; kc6 17:54 BP 135 / 65; Pulse 79; Resp 18 A; Temp 99.7(R); Pulse Ox 100% on ETT vent; kc6 [place] Coma Score: 11:47 Eye Response: to pain(2). Motor Response: none(1). Verbal Response: none(1). Total: 4. gb1 ED Course: 11:10 Missed attempt(s): 18 gauge in right antecubital area. Bleeding controlled, band aid ll1 applied, catheter tip intact. 11:13 Arm band placed on Patient placed in an exam room, on a stretcher. aa5 11:13 Patient has correct armband on for positive identification. Placed in gown. Bed in low kc6 position. Call light in reach. Side rails up X2. Adult w/ patient. cafeteria monitor on. Pulse ox on. NIBP on. Door closed. Noise minimized. Lights dimmed. Pillow given. 11:13 EKG completed in triage. Results shown to MD. kc6 11:13 One-on-one care X 90 minutes. kc6 11:14 EKG done, by ED staff, reviewed by Leticia Esposito MD. aa5 11:15 Inserted saline lock: 20 gauge in right hand, using aseptic technique. aa5 11:17 Inserted saline lock: 20 gauge in left antecubital area, using aseptic technique. aa5 11:28 Patient arrived in ED. kc6 11:32 Leticia Esposito MD is Attending Physician. rt 11:32 Assisted provider with intubation using 7.0 mm ETT via oral route. ET tube secured at aa5 24cm at the lips. 11:35 Bah cath inserted, using sterile technique, 16 Fr., by ED staff, balloon inflated, to aa5 gravity drainage. 11:40 Triage completed. aa5 11:46 XRAY Chest (1 view) In Process Unspecified. EDMS 12:00 CT Stroke Brain w/o Contrast In Process Unspecified. EDMS 12:00 Head angio In Process Unspecified. EDMS 12:01 Neck Angio In Process Unspecified. EDMS 12:10 NGT: inserted 16 Fr. other OG TUBE INSERTED verified placement of air over stomach, db verified return of gastric contents, to intermittent suction. Returned gastric contents. Patient tolerated well. 12:12 Boston, Sandra, RN is Primary Nurse. db 12:21 Provided Education on: Lumbar Puncture, Procedure Consent. kc6 12:54 Assist provider with lumbar puncture: Set up LP tray. Performed by Leticia Esposito MD CSF es3 is clear. Sample collected. Sample sent to lab. Puncture site dressed with band aid, Procedure was successful. Patient tolerated well. 12:54 Inserted saline lock: 22 gauge in left hand, using aseptic technique. Blood collected. db 13:45 Initiated transfer with Laith from [facility]. jr12 13:47 Notified ED physician of a critical lab result(s). lactate 2.6. aa5 15:52 Flu Sent. kc6 15:52 SARS RAPID Sent. kc6 16:55 Inserted saline lock: 20 gauge in right forearm, using aseptic technique. kc6 17:40 CT Chest, Abdomen, Pelvis - W/Contrast In Process Unspecified. EDMS 18:42 Patient transferred, IV remains in place. kc6 02/16 15:47 faxed positive culture report to [facility] at [phone]/ called [facility] to get connected with and RN in the ICU. Administered Medications: 02/15 17:56 Discontinued: propofol5 mcg/kg/min IV at calculated rate See Administration kc6 Instructions; Standard concentration 1000 mg / 100 mL; Recommended max rate 50 mcg/kg/min; Titrate 2 mcg/kg/min every 5 minutes to achieve goal (see titration policy); Goal parameter RASS score 0 to -2 11:32 Drug: Etomidate IVP 20 mg IVP once; VO received prior to intubation Route: IVP; Site: aa5 left antecubital; 12:00 Follow up: Response: No adverse reaction; RASS: Moderate sedation (-3) kc6 11:32 Drug: Succinylcholine IVP 100 mg IVP once; VO received prior to intubation Route: IVP; aa5 Site: left antecubital; 12:00 Follow up: Response: No adverse reaction kc6 11:50 Drug: Propofol IV 5 mcg/kg/min IV at calculated rate See Administration Instructions; db Standard concentration 1000 mg / 100 mL; Recommended max rate 50 mcg/kg/min; Titrate 2 mcg/kg/min every 5 minutes to achieve goal (see titration policy); Goal parameter RASS score 0 to -2 Route: IV; Rate: calculated rate; Site: left antecubital; 13:40 Follow up: Response: No adverse reaction; IV Status: Order to discontinue infusion kc6 12:12 Drug: Acetaminophen PA Suppository 650 mg PA once Route: PA; db 13:17 Follow up: Response: No adverse reaction; Temperature is decreased es3 12:14 Drug: NS 0.9% IV 30 ml/kg IV at [id number] ml/hr bolus Route: IV; Rate: [id number] ml/hr; db Site: left antecubital; 13:14 Follow up: Response: No adverse reaction; IV Status: Completed infusion; IV Intake: kc6 1000ml 12:38 Drug: Midazolam IVP or IV 9 mg IVP once Route: IVP; Site: left antecubital; aa5 12:39 Follow up: Response: Patient is sedated aa5 12:39 Drug: fentaNYL (PF) IVP 100 mcg IVP once {Note: administered by Dr.Blocker Holloway} Route: aa5 IVP; Site: left antecubital; 12:39 Follow up: Response: Patient is sedated aa5 13:00 CANCELLED (Physician Discretion): fentanyl (pf)25 mcg/kg/h IV at per protocol See aa5 Administration Instructions; (Standard concentration 500 mcg / 50 mL NS [10 mcg / 1 mL); Recommended max rate 4 mcg/kg/hr; Titrate 0.25 mcg/kg/hr as often as every 3 minutes to achieve goal (see titration policy); Goal parameter RASS score 0 to -2 13:41 Drug: Midazolam IVP or IV 0.01 mg/kg/h IV at per protocol See Administration kc6 Instructions; (Standard concentration: 100 mg / 100 mL NS); Recommended max rate 0.1 mg/kg/hr; Titrate 0.01 mg/kg/hr as often as every 30 minutes to achieve goal (see titration policy); Goal parameter RASS 0 to -2 Route: IV; Rate: per protocol; Site: left antecubital; 13:42 Follow up: Response: No adverse reaction; RASS: Moderate sedation (-3); Rate change kc6 0.02 per protocol 14:15 Follow up: Response: No adverse reaction; RASS: Moderate sedation (-3); Rate change kc6 0.03 per protocol 14:45 Follow up: Response: No adverse reaction; RASS: Moderate sedation (-3); Rate change kc6 0.04 per protocol 15:12 Follow up: Response: No adverse reaction; Patient is sedated; Rate change 0.05 per kc6 protocol 15:52 Follow up: Response: No adverse reaction; RASS: Moderate sedation (-3); Rate change kc6 0.06 per protocol 18:29 Follow up: Response: No adverse reaction; IV Status: Infusion continued upon transfer kc6 14:21 Drug: Cefepime IVPB 2 grams IVPB at 200 ml/hr once over 30 mins; (mix in NS 100 mL) kc6 Route: IVPB; Rate: 200 ml/hr; Infused Over: 30 mins; Site: left hand; 15:09 Follow up: Response: No adverse reaction; IV Status: Completed infusion; IV Intake: kc6 100ml 14:57 Drug: vancoMYCIN IVPB 20 mg/kg IVPB once; once over 2 hours; not to exceed 2 grams; kc6 (mix in 250 to 500mL NS) Route: IVPB; Site: left hand; 15:55 Follow up: Response: No adverse reaction; IV Status: Completed infusion; IV Intake: kc6 250ml 14:57 Drug: Acyclovir IVPB (20mg/kg) 20 mg/kg IVPB once Route: IVPB; Site: left hand; kc6 15:55 Follow up: Response: No adverse reaction; IV Status: Completed infusion; IV Intake: kc6 100ml 14:57 Drug: NS 0.9% IV 1000 ml IV at 1000 ml once Route: IV; Rate: 1000 ml; Site: left [facility] antecubital; 15:52 Follow up: Response: No adverse reaction; IV Status: Completed infusion; IV Intake: kc6 1000ml 16:29 Drug: NS 0.9% IV 1000 ml IV at 1000 ml once Route: IV; Rate: 1000 ml; Site: left hand; kc6 17:29 Follow up: Response: No adverse reaction; IV Status: Completed infusion; IV Intake: kc6 1000ml 16:30 Drug: fentaNYL (PF) IVP 25 mcg IVP once Route: IVP; Site: left antecubital; kc6 17:30 Follow up: Response: No adverse reaction [facility] 17:05 Drug: Norepinephrine IV 0.1 mcg/kg/min IV at calculated rate See Administration kc6 Instructions; (Standard concentration 4 mg / 250 mL D5W); Recommended max rate 3 mcg/kg/min; Titrate 0.05 mcg/kg/min as often as every 5 minutes to achieve goal (see titration policy); Goal parameter MAP greater than 65 mmHg. Route: IV; Rate: calculated rate; Site: left hand; 17:30 Follow up: Response: No adverse reaction; Blood pressure is elevated kc6 17:55 Follow up: Response: No adverse reaction; Blood pressure is elevated; Rate change 0.05 kc6 mcg/kg/min 18:28 Follow up: Response: No adverse reaction; Blood pressure is elevated; IV Status: kc6 Infusion continued upon transfer Medication: 18:42 VIS not applicable for this client. kc6 Point of Care Testing: Blood Glucose: 11:21 Blood Glucose: 261 mg/dL; db Ranges: Intake: 13:14 IV: 1000ml; Total: 1000ml. kc6 15:09 IV: 100ml; Total: 1100ml. kc6 15:52 IV: 1000ml; Total: 2100ml. kc6 15:55 IV: 100ml; Total: 2200ml. kc6 15:55 IV: 250ml; Total: 2450ml. kc6 17:29 IV: 1000ml; Total: 3450ml. kc6 Output: 17:27 Urine: 725ml (Bah); Total: 725ml. kc6 17:54 Gastric: 300ml (OGT); Total: 1025ml. kc6 Outcome: 14:32 ER care complete, transfer ordered by . gb 18:38 Transferred by [facility] to [facility], Transfer form completed. kc6 Note: report called to TOMER Meier, pt with EMS 18:38 critical 18:38 Instructed on the need for admit, 18:42 Patient left the ED. kc6 Addendum: 02/20/2024 10:40 Addendum: Culture Results: Positive blood culture. Pt was transferred to [address], results faxed to ICU nurse (Simin) at [facility]. Signatures: Dispatcher [employer] Mattie De Los Santos RN RN aa5 Corry Stearns Lynsay, RN RN ll1 Yarely Gamble RN RN kc6 Sandra Boston RN RN db Mahesh Gracia MD MD rt Leticia Esposito MD MD gb1 Brigida Martinez rust Beverly Moses RN RN es3 Corrections: (The following items were deleted from the chart) 02/15 12:11 11:34 BP 174 / 88; Pulse 130bpm; Resp 24bpm; Spontaneous; Pulse Ox 100% ET / Ambu; aa5 aa5 13:36 11:25 Blood Glucose: Blood Glucose Yvxcksn=725 mg/dL. db db 13:38 11:20 Reassessment: PT BROUGHT TO ROOM 1 A CODE STROKE UNRESPONSIVE VOMITED ON SELF. db db 14:11 13:20 BP 84 / 54; Pulse 96bpm; Resp 16bpm; Pulse Ox 100% ET / Ventilator; db db 18:41 13:41 [place] Swallow Protocol Exclusion Criteria: NPO for medical/surgical reason by kc6 provider order Yes db
[2024-02-16 14:48] LABS: Appearance CLEAR (CLEAR); Body Fluid Source CSF; Color of Supernate Not Xanthochromic (Not Xantho); Color of fluid Colorless (COLORLESS); Tube # #2
[2024-02-16] MEDS ORDERED: ACYCLOVIR INJ 700 MG in NA CHLORIDE 0.9% 100 ML IVPB SCH (15:00)
[2024-02-16 16:16] LABS: Appearance CLEAR (CLEAR); Body Fluid Source CSF; Color of Supernate Not Xanthochromic (Not Xantho); Color of fluid Colorless (COLORLESS); Tube # #4
[2024-02-16 16:17] LABS: Body Fluid WBC 1 /mm^3
[2024-02-16 16:19] LABS: Body Fluid WBC 1 /mm^3
[2024-02-16 16:37] LABS: SARS-CoV-2 Antigen CONTROL BLUE LINE VIS/BG OK; SARS-CoV-2 Antigen Rapid Res Negative (Negative)
[2024-02-16] MEDS ORDERED: NOREPINEPHRINE BITARTRATE/D5W 4 MG/250 ML BAG IV ONE (16:57)
--- NOTE | 2024-02-16 18:05 | RAD REPORT ---
EXAM DESCRIPTION: CT - Chest Abdomen Pelvis W Cont - 02/16/2024 5:38 pm CLINICAL HISTORY: Chest and abdominal pain. Vomiting COMPARISON: 2021 CT abdomen TECHNIQUE: Computed axial tomography of the chest, abdomen and pelvis was obtained. 100 cc Isovue-30 0 was administered intravenously. Oral contrast was not requested. This limits evaluation of bowel. All CT scans are performed using dose optimization technique as appropriate and may include automated exposure control or mA/KV adjustment according to patient size. FINDINGS: Endotracheal tube with its tip just above the wally. Nasogastric tube stomach. A few areas of subsegmental atelectasis within the lungs. No mediastinal or hilar lymphadenopathy. No pleural effusion. No pericardial effusion. Cholecystectomy Liver, spleen, pancreas, and adrenals appear unremarkable. 18 millimeter mass left kidney Hounsfield unit 22. Sub centimeter left renal cyst present No evidence of diverticulitis Bah catheter bladder. No adnexal mass. Small umbilical hernia Cortical irregularity involves the vertebral endplates L1-2 and L3-4 with subchondral sclerosis. IMPRESSION: Cortical irregularity involves the vertebral endplates L1-2 and L3-4 with subchondral sc lerosis. This could be secondary to spondylosis. Discitis can also result in this appearance and shou ld be correlated clinically and with appropriate lab values. 18 millimeter mass left kidney may represent a benign complex cyst. An abscess can also have this lisbet earance and again should be correlated clinically and appropriate lab values. Renal ultrasound may he lpful for further evaluation
[2024-02-16 19:31] VITALS: O2SAT 100
[2024-02-16 19:47] VITALS: BP 135/65; TEMP 99.7
--- NOTE | 2024-02-18 14:12 | EKG ---
Test Date: 2024-02-16 Test Time: 11:25:30 Plaster Molder: DARIUSZ MEASUREMENT RESULTS: Intervals: Rate: 128 HI: 116 QRSD: 72 QT: 342 QTc: 499 [place]: P: 47 HI: 116 QRS: 46 T: 3 INTERPRETIVE STATEMENTS: Sinus tachycardia Inferior infarct, age undetermined Abnormal ECG Compared to ECG 05/06/2021 14:29:49 Sinus rhythm no longer present Myocardial infarct finding still present Electronically Signed On 02-18-24 14:07:51 CDT by Asa Jovel
== END 2024-02-16 18:42 | disposition short-term general hospital (02) ==
LOC: ER 11:13
DX: R41.82 Altered mental status, unspecified (principal); I10 Essential (primary) hypertension; E11.9 Type 2 diabetes mellitus without complications; E78.00 Pure hypercholesterolemia, unspecified
CPT/HCPCS: 87040; 87070; 85025; 81001; 36415; 89050 ×2; 87205 ×2; 84157; 85610; 82945; 82947; 83605; 85730; 84484; 80053; 87804 ×2; 71260; 70496; 70498; 74177; 70450; 71045; 31500; 51702; 62270; 99291; 99292; 87811; 94002; Q9967 ×2; J2704; J2250 ×4; J3010 ×2; J0692; J0133; J7050; J7030 ×3; 87077; 87186; 93005